=== PATIENT | female | born 1955 | race Two or more races ===

== ENCOUNTER 2021-03-20 09:55 | Outpatient (CLI) | payer OTHER | END 2021-03-20 10:03 | disposition home or self-care (01) | LOC: RX STUDY 09:55 | PROVIDERS: ATTEND Internal Medicine Gastroenterology | DX: K22.8 Other specified diseases of esophagus (principal); R13.19 Other dysphagia ==

== ENCOUNTER 2021-03-26 10:15 | Day surgery (SDC) | payer OTHER | END 2021-03-26 15:50 | disposition home or self-care (01) | LOC: AMB-ENDOS 10:15 | PROVIDERS: ATTEND Internal Medicine Gastroenterology | DX: D13.1 Benign neoplasm of stomach (principal); K44.9 Diaphragmatic hernia without obstruction or gangrene; Z20.822 Contact with and (suspected) exposure to COVID-19 ==

== ENCOUNTER 2022-07-02 09:21 | Outpatient (CLI) | payer OTHER | END 2022-07-02 10:17 | disposition home or self-care (01) | LOC: RX STUDY 09:21 | PROVIDERS: ATTEND Internal Medicine Gastroenterology | DX: R13.10 Dysphagia, unspecified (principal); Z86.010 Personal history of colon polyps ==

== ENCOUNTER → 2022-08-13 | Day surgery (SDC) | payer OTHER | END | disposition home or self-care (01) | LOC: ADM 08-10 13:45 → AMB-ENDOS 07:43 | PROVIDERS: ATTEND Internal Medicine Gastroenterology | DX: K22.0 Achalasia of cardia (principal); R13.10 Dysphagia, unspecified; I10 Essential (primary) hypertension; Z88.6 Allergy status to analgesic agent; Z88.8 Allergy status to other drugs, medicaments and biological substances; Z20.822 Contact with and (suspected) exposure to COVID-19 ==

== ENCOUNTER 2024-10-03 09:29 | Day surgery (SDC) | payer OTHER ==
[2024-10-03] MEDS ORDERED: fentaNYL CITRATE 50 MCG/ML AMPUL IV ONE (13:00)
[2024-10-03] MEDS ORDERED: DIPHENHYDRAMINE HCL 50 MG/ML VIAL 1ML IV ONE (13:00)
[2024-10-03] MEDS ORDERED: MIDAZOLAM HCL 2 MG/2 ML VIAL IV ONE (13:00)
== END 2024-10-03 15:50 | disposition home or self-care (01) ==
LOC: AMB-ENDOS 09:29 → CIR.AMB 14:45 → AMB-ENDOS 15:50
PROVIDERS: ATTEND Internal Medicine Gastroenterology
DX: R13.12 Dysphagia, oropharyngeal phase (principal); K22.0 Achalasia of cardia; K29.00 Acute gastritis without bleeding; Z88.6 Allergy status to analgesic agent